=== PATIENT | female | born 1985 | race Caucasian/White ===

== ENCOUNTER 2017-11-08 12:57 | Emergency (ER) | payer OTHER, SELFPAY ==
[2017-11-08 13:18] VITALS: BP 128/67; PULSE 110; RESP 20; TEMP 38.2; O2SAT 99; BMI 26.1
--- NOTE | 2017-11-08 13:24 | HMH.EDUTC ---
[facility] [place] Clinical Impression: URI (upper respiratory infection) Qualifiers: URI type: unspecified URI Qualified Code(s): J06.9 - Acute upper respiratory infection, unspecified Nausea & vomiting Qualifiers: Vomiting type: unspecified Vomiting Intractability: unspecified Qualified Code(s): R11.2 - Nausea with vomiting, unspecified Disposition: Home, Self-Care Condition on Discharge: Good Instructions: DI for Vomiting -- Adult, Diarrhea, Cough Additional Instructions: Follow up with family doctor 2days or sooner if no improvement or worsening of symptoms Return if needed Go straight to ER if you began to have trouble breathing swelling vomiting blood or any life threatening situation Drink plenty of fluids and rest Prescriptions: Dextromethorphan Polistirex [Delsym] 10 ml PO Q12H PRN #200 [email or web address].[email or web address] PRN Reason: Cough Fluticasone Propionate [Flonase 50mcg nasal spray 16gm] 2 spr NS DAILY #1 bottle Ondansetron [Zofran 4mg ODT] 4 mg PO Q8H #20 tab.rapdis Referrals: Ward Odom MD [Primary Care Provider] - Forms: Work/School Release Time of Disposition: 14:53 Medical Decision Making - Medical Records Medical records reviewed: Yes: I reviewed the patient's medical records. Vital Signs: 11/08/17 13:18 11/08/17 14:26 Temperature 100.8 F H 100 F H Temperature Source Oral Temporal Artery Scan Pulse Rate 90 Pulse Rate [Right] 110 H Respiratory Rate 20 20 Blood Pressure 122/67 Blood Pressure [Right Arm] 128/67 Blood Pressure Mean [Right Arm] 87 Blood Pressure Source [Right Arm] Automatic Cuff Blood Pressure Position [Right Arm] Sitting 02 Sat by Pulse Oximetry 99 Oxygen Delivery Method Room Air - Lab Data Lab Results 11/08/17 13:23: Influenza Type A Ag Negative, Influenza Type B Ag Negative, Strep Scn Rapid Clinic Negative Orders (Tests/Meds): ED MEDICATIONS Discontinued Medications Generic Name Dose Route Start Last Admin Trade Name Freq PRN Reason Stop Dose Admin Ceftriaxone Sodium 1 gm 11/08/17 14:00 11/08/17 14:12 Rocephin 1gm Vial IM 11/08/17 14:01 1 gm ONCE ONE Administration Lidocaine HCl 0 ml 11/08/17 14:00 02/05/18 14:12 Lidocaine 1% 10ml Mdv IM 11/08/17 14:01 2 ml ONCE ONE Administration Methylprednisolone Sodium Succinate 125 mg 11/08/17 14:00 11/08/17 14:12 Solu-Medrol 125mg/2ml Vial IM 11/08/17 14:01 125 mg ONCE ONE Administration ORDERS Category Date Time Status Strep Screen Confirmation Stat Micro 11/08/17 13:23 Received - Sarbjit Inquiry Pt receiving controlled substance: No Sarbjit was queried for this patient: No [facility] [place] HPI - General Stated complaint: Poss flu, rash on neck Mode of Arrival: Ambulatory Source of Information: Patient Limitations: No Limitations Description of Symptoms (Recalled from Triage Doc. by RN): STATES FLU LIKE X1 WK HEENT Symptoms (Recalled from RN notes): Yes Resp Symptoms (Recalled from RN notes): No Skin Symptoms (Recalled from RN notes): No MS Symptoms (Recalled from RN notes): No Functional Status (Recalled from RN notes): N - History of Present Illness Provider Complaint: Patient states that she had been having flu like symptoms for almost a week State that she was checked on Satuday and was negative for the flu State that today she feels the sickest she has felt State that now she is having nausea, vomiting and diarrhea States that she is having bodyaches, fever, chill vomiting and diarrhea States that she noticed this morning after having an eppisode of vomiting that her face, cheeks and neck looked like she had a red rash - Related Data Home Medications Medication Instructions Recorded Confirmed Sertraline HCl [Zoloft] 50 mg PO DAILY 11/08/17 11/08/17 Previous Rx's Medication Instructions Recorded Dextromethorphan Polistirex 10 ml PO Q12H PRN #200 [email or web address].er.12h 11/08/17 [Delsym] Fluticasone Propionate [Flonase 2 spr NS DAILY #1 bottle
--- NOTE | 2017-11-08 13:27 | ED_ITS ---
[facility] [place] Disposition Clinical Impression: URI (upper respiratory infection) Qualifiers: URI type: unspecified URI Qualified Code(s): J06.9 - Acute upper respiratory infection, unspecified Nausea & vomiting Qualifiers: Vomiting type: unspecified Vomiting Intractability: unspecified Qualified Code( s): R11.2 - Nausea with vomiting, unspecified Disposition: Home, Self-Care Condition on Discharge: Good Instructions: DI for Vomiting -- Adult, Diarrhea, Cough Additional Instructions: Follow up with family doctor 2days or sooner if no improvement or worsening of symptoms Return if needed Go straight to ER if you began to have trouble breathing swelling vomiting blood or any life threatening situation Drink plenty of fluids and rest Prescriptions: Dextromethorphan Polistirex [Delsym] 10 ml PO Q12H PRN #200 [email or web address].er.12h PRN Reason: Cough Fluticasone Propionate [Flonase 50mcg nasal spray 16gm] 2 spr NS DAILY #1 bottle Ondansetron [Zofran 4mg ODT] 4 mg PO Q8H #20 tab.rapdis Referrals: Ward Odom MD [Primary Care Provider] - Forms: Work/School Release Time of Disposition: 14:53 Medical Decision Making - Medical Records Medical records reviewed: Yes: I reviewed the patient's medical records. Vital Signs: 11/08/17 13:18 11/08/17 14:26 Temperature 100.8 F H 100 F H Temperature Source Oral Temporal Artery Scan Pulse Rate 90 Pulse Rate [Right] 110 H Respiratory Rate 20 20 Blood Pressure 122/67 Blood Pressure [Right Arm] 128/67 Blood Pressure Mean [Right Arm] 87 Blood Pressure Source [Right Arm] Automatic Cuff Blood Pressure Position [Right Arm] Sitting 02 Sat by Pulse Oximetry 99 Oxygen Delivery Method Room Air - Lab Data Lab Results 11/08/17 13:23: Influenza Type A Ag Negative, Influenza Type B Ag Negative, Strep Scn Rapid Clinic Negative Orders (Tests/Meds): ED MEDICATIONS Discontinued Medications Generic Name Dose Route Start Last Admin Trade Name Freq PRN Reason Stop Dose Admin Ceftriaxone Sodium 1 gm 11/08/17 14:00 11/08/17 14:12 Rocephin 1gm Vial IM 11/08/17 14:01 1 gm ONCE ONE Administration Lidocaine HCl 0 ml 11/08/17 14:00 02/05/18 14:12 Lidocaine 1% 10ml Mdv IM 11/08/17 14:01 2 ml ONCE ONE Administration Methylprednisolone Sodium Succinate 125 mg 11/08/17 14:00 11/08/17 14:12 Solu-Medrol 125mg/2ml Vial IM 11/08/17 14:01 125 mg ONCE ONE Administration ORDERS Category Date Time Status Strep Screen Confirmation Stat Micro 11/08/17 13:23 Received - Sarbjit Inquiry Pt receiving controlled substance: No Sarbjit was queried for this patient: No [facility] [place] HPI - General Stated complaint: Poss flu, rash on neck Mode of Arrival: Ambulatory Source of Information: Patient Limitations: No Limitations Description of Symptoms (Recalled from Triage Doc. by RN): STATES FLU LIKE X1 WK HEENT Symptoms (Recalled from RN notes): Yes Resp Symptoms (Recalled from RN notes): No Skin Symptoms (Recalled from RN notes): No MS Symptoms (Recalled from RN notes): No Functional Status (Recalled from RN notes): N - History of Present Illness Provider Complaint: Patient states that she had been having flu like symptoms for almost a week State that she was checked on Satuday and was negative for th
[2017-11-08 13:56] LABS: UTC Influenza A Antigen Negative (Negative); UTC Influenza B Antigen Negative (Negative); UTC Strep Screen (Rapid) Negative (Negative)
[2017-11-08 14:26] VITALS: BP 122/67; PULSE 90; RESP 20; TEMP 37.7
== END 2017-11-08 15:05 | disposition home or self-care (01) ==
LOC: ER 13:05 → UTC 13:08
PROVIDERS: Emergency Provider Nurse Practitioner; Family Provider Family Medicine; PCP Family Medicine
DX: J06.9 Acute upper respiratory infection, unspecified (principal); R11.2 Nausea with vomiting, unspecified
CPT/HCPCS: 87804; 87880; 96372; 99201